=== PATIENT | female | born 1990 | race Caucasian/White ===

== ENCOUNTER 2019-12-26 16:34 | Inpatient (IN) | payer OTHER ==
[~2019-12-26] VITALS: Ht 160 cm; Wt 48.6 kg
[2019-12-26 18:05] LABS: HEMATOCRIT 45.5 % (36.0-47.0); HEMOGLOBIN 15.3 g/dl (12.0-15.5); MEAN CORPUSCULAR HEMOGLOBIN 28.6 pg (27.0-33.0); MEAN CORPUSCULAR HGB CONC 33.6 g/dl (32.0-36.5); PLATELET COUNT, AUTOMATED 273 10^3/uL (150-450); RED BLOOD COUNT 5.35 10^6/uL (4.00-5.40); WHITE BLOOD COUNT 7.9 10^3/uL (4.0-10.0)
[2019-12-26 18:34] LABS: ACETAMINOPHEN LEVEL < 2.0 UG/ML (10.0-30.0); ALT/SGPT 27 U/L (12-78); BILIRUBIN,DIRECT 0.3 MG/DL (0.0-0.2); BLOOD UREA NITROGEN 16 MG/DL (7-18); CALCIUM LEVEL 8.9 MG/DL (8.5-10.1); CARBON DIOXIDE LEVEL 24 MEQ/L (21-32); CHLORIDE LEVEL 109 MEQ/L (98-107); CREATININE FOR GFR 0.69 MG/DL (0.55-1.30); ETHYL ALCOHOL (ETHANOL) < 0.003 % (0.000-0.010); GLOMERULAR FILTRATION RATE > 60.0 (>60); GLUCOSE, FASTING 77 MG/DL (70-100); POTASSIUM SERUM 3.6 MEQ/L (3.5-5.1); SALICYLATE LEVEL < 1.7 MG/DL (5.0-30.0); SODIUM LEVEL 141 MEQ/L (136-145); TOTAL PROTEIN 7.5 GM/DL (6.4-8.2)
[2019-12-26] MEDS ORDERED: MAALOX 30 ML SUSP *UDC PO PRN (19:30)
[2019-12-26] MEDS ORDERED: IBUPROFEN 400 MG TAB PO PRN (19:30)
[2019-12-26] MEDS ORDERED: MOM 30ML SUSPENSION UDC PO PRN (19:30)
[2019-12-26] MEDS ORDERED: IBUP-1730 PO (20:58)
[2019-12-26 21:21] LABS: AMPHETAMINES LEVEL URINE NEGATIVE (NEGATIVE); BARBITURATES URINE NEGATIVE (NEGATIVE); BENZODIAZEPINES URINE NEGATIVE (NEGATIVE); CANNABINOIDS URINE NEGATIVE (NEGATIVE); COCAINE METABOLITE URINE NEGATIVE (NEGATIVE); METHADONE URINE NEGATIVE (NEGATIVE); OPIATES URINE NEGATIVE (NEGATIVE); PHENCYCLIDINE URINE NEGATIVE (NEGATIVE)
[2019-12-26 23:14] VITALS: BP 113/71
[2019-12-27] MEDS: OLANZapine ORAL DISINTEGRATING TAB 5MG PO PRN (00:42)
[2019-12-27] MEDS: traZODone 50 MG TAB PO PRN (00:42)
[2019-12-27 06:20] VITALS: BP 107/64
--- NOTE | 2019-12-27 11:28 | HPEPDOC ---
General Date of Admission Dec 26, 2019 at 19:27 Date of Service: Dec 27, 2019 Chief Complaint The patient is a 29-year-old female admitted with a reason for visit of Unspecified Psychotic Disorder. Source: Patient Exam Limitations: No limitations Associated Symptoms: Denies Symptoms History of Present Illness Ms. Mckeon is a 29-year-old female who is admitted to the behavioral health unit due to worsening depression. Patient reported that for some time now she has gone between feeling normal and in a good mood to feeling very sad and tearful. Patient denied any history of treatment for depression. She reported that "on and off" . She has had suicidal thoughts, she denied any homicidal ideation. Patient denied any new or worsening medical symptoms. Home Medications Scheduled PRN Ibuprofen (Ibuprofen) 200 Mg Tablet, 400 MG PO Q6H PRN for PAIN, (Reported) Allergies Coded Allergies: No Known Drug Allergies (Verified Allergy, Unknown, 12/26/19) Past Medical History Medical History Unremarkable Surgical History None Family History Unknown Social History * Smoker: Denies Alcohol: Denies Drugs: denies A-FIB/CHADSVASC A-FIB History Current/History of A-Fib/PAF?: No Current PO Anticoag Therapy: No Review of Systems Constitutional: Denies: Chills, Fever, Night Sweats Eyes: Denies: Pain ENT: Denies: Head Aches Skin: Denies: Rash Pulmonary: Denies: Dyspnea, Cough Cardiovascular: Denies: Chest Pain, Palpitations, Edema Gastrointestinal: Denies: Nausea, Vomiting, Abdominal Pain, Diarrhea, Constipation Genitourinary: Denies: Dysuria, Frequency Hematologic: Denies: Bruising Musculoskeletal: Denies: Neck Pain, Back Pain, Joint Pain, Muscle Pain, Spasms Neurological: Denies: Weakness, Numbness Psych: Reports: Depression, Thoughts of Self Harm; Denies: Mood Normal, Thoughts of Harming Other Physical Examination General Exam: Positive: Alert, Mild Distress (very depressed, tearful) Eye Exam: Positive: PERRLA, Conjunctiva & lids normal, EOMI; Negative: Sclera icteric ENT Exam: Positive: Atraumatic, Mucous membr. moist/pink, Pharynx Normal, Tongue Midline; Negative: Pharyngeal Edema Neck Exam: Positive: Supple; Negative: thyromegaly, Lymphadenopathy Chest Exam: Positive: Clear to auscultation, Normal air movement Heart Exam: Positive: Rate Normal, Regular Rhythm, Normal S1, Normal S2; Negative: Murmurs, Rubs Telemetry: Positive: No significant arrhythmia Abdomen Exam: Positive: Normal bowel sounds, Soft; Negative: Tenderness Extremity Exam: Positive: Normal pulses; Negative: Clubbing, Cyanosis, Edema, Tenderness, Swelling Skin Exam: Positive: Nl turgor and temperature Neuro Exam: Positive: Normal Gait, Strength at 5/5 X4 ext, Cranial Nerves 3-12 NL; Negative: Normal Speech (speaks very quietly, halting due to tears) Psych Exam: Negative: Mood NL Vital Signs Vital Signs Date Time Temp Pulse Resp B/P (MAP) Pulse Ox O2 Delivery O2 Flow Rate FiO2 12/27/19 06:20 99.6 66 20 107/64 (78) Room Air 12/26/19 23:14 100 Laboratory Data Labs 24H Laboratory Tests 2 12/26/19 21:00: Urine Opiates Screen NEGATIVE, Urine Methadone Screen NEGATIVE, Urine Barbiturates Screen NEGATIVE, Urine Phencyclidine Screen NEGATIVE, Urine Amphetamines Screen NEGATIVE, Urine Benzodiazepines Screen NEGATIVE, Urine Cocaine Metabolite Screen NEGATIVE, Urine Cannabinoids Screen NEGATIVE Assessment/Plan #1. Depression with suicidal thoughts. Continued management per psychiatry Medicine will sign off at this time. Please feel free to re-consult as needed. Plan / VTE VTE Prophylaxis Ordered?: No ERASTO OSBORN PA-C Dec 27, 2019 11:28
[2019-12-27] MEDS: LORazepam 0.5 MG TAB PO SCH ×3 (12:08→21:32)
--- NOTE | 2019-12-27 12:20 | MHHPEPDOC ---
[facility] History & Physical History and Physical DATE OF ADMISSION: Dec 26, 2019 at 19:27 New Patient Yissel Mckeon MRN: N/A Date of : N/A Date of Service: 12/27/2019 Chief Complaint "I do not feel right." History of Present Illness The patient a 29-year-old woman presented to [facility] and what appears to be a catatonic state after being brought in by her . The patient was unable to give much history or describe the majority of her symptoms in the ER and was admitted out of an abundance of caution. When the patient was met with she was unable to describe any symptoms to any depth other than feeling "weird." She appeared to be fairly slowed and unable to provide any meaningful history. Review Of Systems Unable to obtain due to patient mental health/mental status exam. Past Psychiatric History Unknown, but reports do not show any consistent admissions, medication trials or current follow ups. Allergies Please see below. Family Psychiatric History Unknown due to mental status. Social History Patient reportedly lives with , has an unknown current employment history and background. Substance Abuse History Urinary tox was negative on presentation and noncontributory. Medical History Does not appear to have significant past medical problems. Mental Status Examination General: Fair hygiene Speech: Nearly mute Thought processes: Generally linear at times MSK: [place] found, slowed with significant purposeless movements Thought content: Clouded Abstract reasoning, and computation: Impaired Description of associations: Intact Description of abnormal or psychotic thoughts: Unknown Judgment: Impaired Insight: Impaired Orientation: Alert and orientated to environment Cognition: Slowed Recent and remote memory: Intact Attention span and concentration: Slowed Fund of knowledge: Adequate Mood: "Do not know" Affect: Profoundly flat Diagnoses Catatonia. Assessment and Plan Catatonia: Will start 0.5 mg of Ativan TID and assess as the patient improves if there are underlying psychotic or depressive processes. 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 Problem List 1. Altered thoughts. Initial Treatment Plan 1. Patient was admitted on a 9.39 legal status. 2. Complete history was obtained. 3. With patients permission, family will be contacted and database will be expanded. 4. Patients medication regimen will be reviewed and changed accordingly. 5. Patient will be provided with protected environment. 6. Patient will be treated with individual, group, and milieu therapies. 7. Patient will receive supportive psych-education. 8. Discharge planning will commence immediately. 9. Outpatient follow-up treatment will be strongly recommended. 10. The initial treatment plan will focus initially on: Estimated Length Of Stay 3 days. Time Spent 70 minutes with greater than 50% of time spent on counseling/coordination of care. Vital Signs Vital Signs Date Time Temp Pulse Resp B/P (MAP) Pulse Ox O2 Delivery O2 Flow Rate FiO2 12/27/19 06:20 99.6 66 20 107/64 (78) Room Air 12/26/19 23:14 100 Laboratory Data 24H Labs Laboratory Tests 2 12/26/19 21:00: Urine Opiates Screen NEGATIVE, Urine Methadone Screen NEGATIVE, Urine Barbiturates Screen NEGATIVE, Urine Phencyclidine Screen NEGATIVE, Urine Amphetamines Screen NEGATIVE, Urine Benzodiazepines Screen NEGATIVE, Urine Cocaine Metabolite Screen NEGATIVE, Urine Cannabinoids Screen NEGATIVE Medications Scheduled PRN Ibuprofen (Ibuprofen) 200 Mg Tablet, 400 MG PO Q6H PRN for PAIN, (Reported) Allergies Coded Allergies: No Known Drug Allergies (Verified Allergy, Unknown, 12/26/19) hydrocodone (Verified Adverse Reaction, Mild, 12/28/19) Upset stomach per patient JIMENA BUSCH DO Dec 27, 2019 12:20
[2019-12-27 15:36] VITALS: BP 109/58
[2019-12-27] MEDS: ACETAMINOPHEN TAB 650MG DOSE (2X325MG) PO PRN (21:42)
[2019-12-28 06:39] VITALS: BP 117/69
[2019-12-28] MEDS ORDERED: INFLUENZA QUADRIVALENT PF VACCINE 0.5ML SYRINGE (90686) IM ONE (09:00)
[2019-12-28] MEDS: LORazepam 0.5 MG TAB PO SCH ×3 (09:51→21:04)
[2019-12-28] MEDS: OLANZapine ORAL DISINTEGRATING TAB 5MG PO PRN (10:13)
--- NOTE | 2019-12-28 12:42 | MHIPNPDOC ---
[facility] Progress Note Progress Note Inpatient Progress Note Yissel Mckeon MRN: N/A Date of : N/A Date of Service: 12/28/2019 History of Present Illness The patient a 29-year-old woman presented to [facility] and what appears to be a catatonic state after being brought in by her . The patient was unable to give much history or describe the majority of her symptoms in the ER and was admitted out of an abundance of caution. When the patient was met with she was unable to describe any symptoms to any depth other than feeling "weird." She appeared to be fairly slowed and unable to provide any meaningful history. Interval History The patient was met with today. She was lying in bed and was noting some sedation. However, she still speaks fairly softly and is generally unable to give any meaningful information. She did attend groups and was notably more interactive. Collateral information from her indicates that she has no history of mental health problems and had increasingly bizarre behavior over the last several months. She generally has not had any behavioral problems but is notably odd and shuffles around the unit. Review Of Systems Unable to obtain due to mental status. Psychotherapy None on this visit. Vital Signs Reviewed. Mental Status Examination General: Fair hygiene Speech: Nearly mute Thought processes: Generally linear at times MSK: [place]egen[place] found, slowed with significant purposeless movements Thought content: Clouded Abstract reasoning, and computation: Impaired Description of associations: Intact Description of abnormal or psychotic thoughts: Unknown Judgment: Impaired Insight: Impaired Orientation: Alert and orientated to environment Cognition: Slowed Recent and remote memory: Intact Attention span and concentration: Slowed Fund of knowledge: Adequate Mood: "Do not know" Affect: Profoundly flat Diagnoses Catatonia. Assessment and Plan Catatonia: Continue Ativan 0.5 mg TID. 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 Time Spent 15 minutes. Tuesday Vital Signs Vital Signs Date Time Temp Pulse Resp B/P (MAP) Pulse Ox O2 Delivery O2 Flow Rate FiO2 12/28/19 10:44 98.7 12/28/19 06:39 90 14 117/69 (85) Room Air 12/26/19 23:14 100 Current Medications Current Medications Medications (Trade) Dose Ordered Sig/Manolo Route PRN Reason Start Time Stop Time Status Last Admin Dose Admin Acetaminophen (Tylenol Tab) 650 mg Q6HP PRN PO PAIN / FEVER 12/27/19 21:15 12/27/19 21:42 Al Hydrox/Mg Hydrox/Simethicone (Mylanta) 30 ml Q4HP PRN PO HEARTBURN/INDIGESTION 12/26/19 19:30 Home Med (Med Rec Complete!) ASDIRECTED XX 12/26/19 21:00 12/26/19 21:00 DC Ibuprofen (Advil) 400 mg Q6HP PRN PO PAIN 12/26/19 19:30 12/27/19 21:18 DC 12/27/19 16:49 Lorazepam (Ativan) 0.5 mg TID PO 12/27/19 09:00 12/28/19 09:51 Magnesium Hydroxide (Milk Of Magnesia) 30 ml DAILYPRN PRN PO CONSTIPATION 12/26/19 19:30 Olanzapine (ZyPREXA ZYDIS) 5 mg Q4HP PRN PO ANXIETY/AGITATION 12/26/19 19:30 12/28/19 10:13 Trazodone HCl (Desyrel) 50 mg QHSP PRN PO INSOMNIA 12/26/19 19:30 12/27/19 00:42 Allergies Coded Allergies: hydrocodone (Verified Adverse Reaction, Mild, Upset stomach per patient, 12/28/19) JIMENA BUSCH DO Dec 28, 2019 12:42
[2019-12-28 16:00] VITALS: BP 104/67
[2019-12-29 06:48] VITALS: BP 129/83
[2019-12-29] MEDS ORDERED: INFLUENZA QUADRIVALENT PF VACCINE 0.5ML SYRINGE (90686) IM ONE (09:00)
[2019-12-29] MEDS: LORazepam 0.5 MG TAB PO SCH ×3 (09:26→21:43)
--- NOTE | 2019-12-29 09:31 | MHIPNPDOC ---
[facility] Progress Note Progress Note DATE OF SERVICE: 12/29/19 HISTORY: Per Dr. Guevara: "The patient a 29-year-old woman presented to [facility] and what appears to be a catatonic state after being brought in by her . The patient was unable to give much history or describe the majority of her symptoms in the ER and was admitted out of an abundance of caution. When the patient was met with she was unable to describe any symptoms to any depth other than feeling "weird." She appeared to be fairly slowed and unable to provide any meaningful history. Interval History 12/27/2019 The patient was met with today. She was lying in bed and was noting some sedation. However, she still speaks fairly softly and is generally unable to give any meaningful information. She did attend groups and was notably more interactive. Collateral information from her indicates that she has no history of mental health problems and had increasingly bizarre behavior over the last several months. She generally has not had any behavioral problems but is notably odd and shuffles around the unit." VITAL SIGNS: See below. NEW TEST RESULTS: See below. CURRENT MEDICATIONS: See below. MENTAL STATUS EXAMINATION: General: Fair hygiene Speech: reg rate/rhythm/volume Thought processes: Generally linear and logical MSK: improving [place]egenhal[place] found, less slowed with less purposeless movements Thought content: denies SI/HI Abstract reasoning, and computation: Impaired Description of associations: Intact Description of abnormal or psychotic thoughts: Unknown Judgment: Impaired Insight: Impaired Orientation: Alert and orientated to environment Cognition: Slowed Recent and remote memory: Intact Attention span and concentration: fair Fund of knowledge: Adequate Mood: "ok" Affect: more reactive DIAGNOSES: Catatonia. ASSESSMENT:Pt seen in her room and states that her mood is "ok". She has a picture of her and daughter in bed with her that she states makes her feel better seeing. States she slept well last night. Feels she is tolerating her medication and they're beneficial. She appears less catatonic today and as able to having meaningful, logical, and linear conversation today. She is attending some groups and finding them helpful. She denies SI/HI, hallucinations, delusions. Pt feels safe here. MANAGEMENT PLAN: per Dr. Guevara Ativan 0.5 mg TID. TIME SPENT: 30 minutes. Vital Signs Vital Signs Date Time Temp Pulse Resp B/P (MAP) Pulse Ox O2 Delivery O2 Flow Rate FiO2 12/29/19 06:48 98.5 83 12 129/83 (98) 12/28/19 06:39 Room Air 12/26/19 23:14 100 Current Medications Current Medications Medications (Trade) Dose Ordered Sig/Manolo Route PRN Reason Start Time Stop Time Status Last Admin Dose Admin Acetaminophen (Tylenol Tab) 650 mg Q6HP PRN PO PAIN / FEVER 12/27/19 21:15 12/27/19 21:42 Al Hydrox/Mg Hydrox/Simethicone (Mylanta) 30 ml Q4HP PRN PO HEARTBURN/INDIGESTION 12/26/19 19:30 Home Med (Med Rec Complete!) ASDIRECTED XX 12/26/19 21:00 12/26/19 21:00 DC Ibuprofen (Advil) 400 mg Q6HP PRN PO PAIN 12/26/19 19:30 12/27/19 21:18 DC 12/27/19 16:49 Lorazepam (Ativan) 0.5 mg TID PO 12/27/19 09:00 12/28/19 21:04 Magnesium Hydroxide (Milk Of Magnesia) 30 ml DAILYPRN PRN PO CONSTIPATION 12/26/19 19:30 Olanzapine (ZyPREXA ZYDIS) 5 mg Q4HP PRN PO ANXIETY/AGITATION 12/26/19 19:30 12/28/19 10:13 Trazodone HCl (Desyrel) 50 mg QHSP PRN PO INSOMNIA 12/26/19 19:30 12/27/19 00:42 Allergies Coded Allergies: hydrocodone (Verified Adverse Reaction, Mild, Upset stomach per patient, 12/28/19) SAI MURGUIA DO Dec 29, 2019 9:31 am
[2019-12-29 10:49] LABS: APPEARANCE, URINE HAZY (CLEAR); BILIRUBIN, URINE AUTO NEGATIVE (NEGATIVE); BLOOD, URINE BLOOD 3+ (NEGATIVE); COLOR, URINE YELLOW (YELLOW); GLUCOSE, URINE (UA) AUTO NEGATIVE (NEGATIVE); KETONE, URINE AUTO NEGATIVE (NEGATIVE); LEUKOCYTE ESTERASE, URINE AUTO TRACE (NEGATIVE); NITRITE, URINE AUTO NEGATIVE (NEGATIVE); PROTEIN, URINE AUTO NEGATIVE (NEGATIVE)
[2019-12-29 10:55] LABS: BACTERIA, URINE AUTO 1+ (NEGATIVE); MUCUS, URINE MODERATE (NEGATIVE); RBC, URINE AUTO 10 /HPF (0-3); SQUAMOUS EPITHELIAL CELL UR AU 5 /HPF (0-6); WBC, URINE AUTO 19 /HPF (0-3)
[2019-12-29] MEDS: BACTRIM 160MG/800MG DS TAB PO SCH ×2 (16:18→21:00)
[2019-12-29 17:42] VITALS: BP 113/74
[2019-12-29] MEDS: traZODone 50 MG TAB PO PRN (21:45)
[2019-12-30 06:11] VITALS: BP 152/70
[2019-12-30] MEDS: LORazepam 0.5 MG TAB PO SCH ×3 (08:42→20:37)
[2019-12-30] MEDS: BACTRIM 160MG/800MG DS TAB PO SCH ×2 (08:42→20:37)
--- NOTE | 2019-12-30 09:07 | MHIPNPDOC ---
[facility] Progress Note Progress Note DATE OF SERVICE: 12/30/19 HISTORY: Per Dr. Guevara: "The patient a 29-year-old woman presented to [facility] and what appears to be a catatonic state after being brought in by her . The patient was unable to give much history or describe the majority of her symptoms in the ER and was admitted out of an abundance of caution. When the patient was met with she was unable to describe any symptoms to any depth other than feeling "weird." She appeared to be fairly slowed and unable to provide any meaningful history. Interval History 12/27/2019 The patient was met with today. She was lying in bed and was noting some sedation. However, she still speaks fairly softly and is generally unable to give any meaningful information. She did attend groups and was notably more interactive. Collateral information from her indicates that she has no history of mental health problems and had increasingly bizarre behavior over the last several months. She generally has not had any behavioral problems but is notably odd and shuffles around the unit." VITAL SIGNS: See below. NEW TEST RESULTS: See below. CURRENT MEDICATIONS: See below. MENTAL STATUS EXAMINATION: General: Fair hygiene Speech: reg rate/rhythm/volume Thought processes: Generally linear and logical MSK: denies Thought content: denies SI/HI Abstract reasoning, and computation: fair Description of associations: Intact Description of abnormal or psychotic thoughts: denies hallucinations and delusions Judgment: fair Insight: fair Orientation: Alert and orientated to environment Cognition: improving Recent and remote memory: Intact Attention span and concentration: fair Fund of knowledge: Adequate Mood: "alright" Affect: euthymic mostly DIAGNOSES: Catatonia. ASSESSMENT:Pt seen in the milieu stating her mood is "alright." Thoughts appear logical and linear with good attention. She no longer appears catatonic. She is able to ask for things she would like, like gateraid. States she slept well last night. Feels she is tolerating her medication and they're beneficial. She is attending some groups and finding them helpful. She denies SI/HI, hallucinations, delusions. Pt feels safe here. MANAGEMENT PLAN: per Dr. Guevara Ativan 0.5 mg TID. TIME SPENT: 30 minutes. Vital Signs Vital Signs Date Time Temp Pulse Resp B/P (MAP) Pulse Ox O2 Delivery O2 Flow Rate FiO2 12/30/19 06:11 98.0 72 12 152/70 (97) 12/29/19 17:42 100 Room Air Laboratory Data 24H Labs Laboratory Tests 2 12/29/19 10:35: Urine Color YELLOW, Urine Appearance HAZY, Urine pH 6.0, Urine Specific [place] 1.020, Urine Protein NEGATIVE, Urine Glucose (Auto)(UA) NEGATIVE, Urine Ketones (Auto) NEGATIVE, Urine Blood 3+H, Urine Nitrite NEGATIVE, Urine Bilirubin NEGATIVE, Urine Urobilinogen 2.0H, Urine Leukocyte Esterase (Auto) TRACEH, Urine WBC (Auto) 19H, Urine RBC (Auto) 10H, Urine Hyaline Casts (Auto) 0, Urine Bacteria (Auto) 1+H, Urine Squamous Epithelial Cells 5, Urine Mucus (Auto) MODERATE, Urine Sperm (Auto) Current Medications Current Medications Medications (Trade) Dose Ordered Sig/Manolo Route PRN Reason Start Time Stop Time Status Last Admin Dose Admin Acetaminophen (Tylenol Tab) 650 mg Q6HP PRN PO PAIN / FEVER 12/27/19 21:15 12/27/19 21:42 Al Hydrox/Mg Hydrox/Simethicone (Mylanta) 30 ml Q4HP PRN PO HEARTBURN/INDIGESTION 12/26/19 19:30 Home Med (Med Rec Complete!) ASDIRECTED XX 12/26/19 21:00 12/26/19 21:00 DC Ibuprofen (Advil) 400 mg Q6HP PRN PO PAIN 12/26/19 19:30 12/27/19 21:18 DC 12/27/19 16:49 Lorazepam (Ativan) 0.5 mg TID PO 12/27/19 09:00 12/30/19 08:42 Magnesium Hydroxide (Milk Of Magnesia) 30 ml DAILYPRN PRN PO CONSTIPATION 12/26/19 19:30 Olanzapine (ZyPREXA ZYDIS) 5 mg Q4HP PRN PO ANXIETY/AGITATION 12/26/19 19:30 12/28/19 10:13 Trazodone HCl (Desyrel) 50 mg QHSP PRN PO INSOMNIA 12/26/19 19:30 12/29/19 21:45 Trimethoprim/ Sulfamethoxazole (Bactrim Ds, Septra Ds 160mg/ 800mg) 1 tab BID PO 12/29/19 09:00 12/30/19 08:42 Allergies Coded Allergies: hydrocodone (Verified Adverse Reaction, Mild, Upset stomach per patient, 12/28/19) SAI MURGUIA DO Dec 30, 2019 9:07 am
[2019-12-30 15:00] VITALS: BP 106/58
[2019-12-31 06:08] VITALS: BP 102/59
--- NOTE | 2019-12-31 09:32 | MHIPNPDOC ---
[facility] Progress Note Progress Note Inpatient Progress Note Yissel Mckeon MRN: N/A Date of : N/A Date of Service: 12/31/2019 History of Present Illness The patient a 29-year-old woman presented to [facility] and what appears to be a catatonic state after being brought in by her . The patient was unable to give much history or describe the majority of her symptoms in the ER and was admitted out of an abundance of caution. When the patient was met with she was unable to describe any symptoms to any depth other than feeling "weird." She appeared to be fairly slowed and unable to provide any meaningful history. Interval History The patient was met with, she reports that she is doing better. She reports much less depression. Her anxiety is resolving, she does have some difficulty with some inappropriate guilt, likely secondary to depression. She is met with where it becomes abundantly clear that she is improving with the Ativan, discussed with patient about starting an antidepressant as it appears far more likely that the patient in question had depression primarily before being admitted. No issues overnight. Attends groups well and staff report improving well. Review Of Systems General: Denies fever or appetite changes Cardiovascular: Denies Chest pain or palpations GI: Denies Nausea, vomiting, or bowel changes Respiratory: Denies shortness of breath or cough Neuro: Denies dizziness, tremors Derm: Denies any rashes or pruritus : Denies any dysuria or urinary problems MSK: Denies any muscle tightness or stiffness HEENT: Denies any vision changes or headaches Psychotherapy None on this visit. Vital Signs Reviewed. Mental Status Examination General: Well dressed with good hygiene Speech: Spontaneous and fluid Thought processes: Linear and logical MSK: Smooth and coordinated gait, no signs of tremors or involuntary orofacial movements Thought content: Future orientated Abstract reasoning, and computation: Intact Description of associations: Intact Description of abnormal or psychotic thoughts: Denies any suicidal or homicidal ideation. Denies any auditory or visual hallucinations. Does not appear to be responding to internal stimuli. Does not appear to be endorsing any bizarre or paranoid ideation. Judgment: fair Insight: fair Orientation: Alert and orientated 3 Cognition: Grossly normal Recent and remote memory: Intact Attention span and concentration: Intact Fund of knowledge: Adequate Mood: "okay" Affect: Euthymic with a full range Diagnoses Unspecified depression, likely MDD. Assessment and Plan Catatonia: Continue Ativan 0.5 mg TID. MDD: Start sertraline 25 mg daily. Discussed risks, benefits and potential side effects. Disposition Discharge tomorrow if continues to improve. Time Spent 15 minutes. Tuesday Vital Signs Vital Signs Date Time Temp Pulse Resp B/P (MAP) Pulse Ox O2 Delivery O2 Flow Rate FiO2 12/31/19 06:08 98.5 62 14 102/59 (73) 12/30/19 15:00 100 Room Air Current Medications Current Medications Medications (Trade) Dose Ordered Sig/Manolo Route PRN Reason Start Time Stop Time Status Last Admin Dose Admin Acetaminophen (Tylenol Tab) 650 mg Q6HP PRN PO PAIN / FEVER 12/27/19 21:15 12/27/19 21:42 Al Hydrox/Mg Hydrox/Simethicone (Mylanta) 30 ml Q4HP PRN PO HEARTBURN/INDIGESTION 12/26/19 19:30 Home Med (Med Rec Complete!) ASDIRECTED XX 12/26/19 21:00 12/26/19 21:00 DC Ibuprofen (Advil) 400 mg Q6HP PRN PO PAIN 12/26/19 19:30 12/27/19 21:18 DC 12/27/19 16:49 Lorazepam (Ativan) 0.5 mg TID PO 12/27/19 09:00 12/30/19 20:37 Magnesium Hydroxide (Milk Of Magnesia) 30 ml DAILYPRN PRN PO CONSTIPATION 12/26/19 19:30 Olanzapine (ZyPREXA ZYDIS) 5 mg Q4HP PRN PO ANXIETY/AGITATION 12/26/19 19:30 12/28/19 10:13 Trazodone HCl (Desyrel) 50 mg QHSP PRN PO INSOMNIA 12/26/19 19:30 12/29/19 21:45 Trimethoprim/ Sulfamethoxazole (Bactrim Ds, Septra Ds 160mg/ 800mg) 1 tab BID PO 12/29/19 09:00 12/30/19 20:37 Allergies Coded Allergies: hydrocodone (Verified Adverse Reaction, Mild, Upset stomach per patient, 12/28/19) JIMENA BUSCH DO Dec 31, 2019 09:32
[2019-12-31] MEDS: LORazepam 0.5 MG TAB PO SCH ×3 (09:58→20:07)
[2019-12-31] MEDS: BACTRIM 160MG/800MG DS TAB PO SCH ×2 (09:58→20:07)
[2019-12-31] MEDS ORDERED: SERTRALINE HCL 25 MG TABLET PO ONE (12:00)
[2019-12-31 16:00] VITALS: BP 110/68
[2019-12-31] MEDS: traZODone 50 MG TAB PO PRN (20:07)
[2019-12-31] MEDS: ACETAMINOPHEN TAB 650MG DOSE (2X325MG) PO PRN (21:25)
[2020-01-01 06:27] VITALS: BP 111/51
[2020-01-01] MEDS: LORazepam 0.5 MG TAB PO SCH (08:22)
[2020-01-01] MEDS: BACTRIM 160MG/800MG DS TAB PO SCH (08:22)
[2020-01-01] MEDS ORDERED: SERTRALINE HCL 25 MG TABLET PO SCH (09:00)
[2020-01-01] MEDS ORDERED: SERT25TA21 PO (09:27)
[2020-01-01] MEDS ORDERED: ATIV1TAB10 PO (09:27)
[2020-01-01] MEDS ORDERED: SULF1TAB93 PO (09:27)
--- NOTE | 2020-01-01 09:44 | MHDSPDOC ---
[facility] Discharge Summary Discharge Summary DATE OF ADMISSION: Dec 26, 2019 at 19:27 /DATE OF DISCHARGE: 01/01/20 Discharge Yissel Mckeon MRN: [id number] Date of : N/A Date of Service: 01/01/2020 Diagnoses unspecified depression, likely MDD. Catatonia. History of Present Illness The patient a 29-year-old woman presented to [facility] and what appears to be a catatonic state after being brought in by her . The patient was unable to give much history or describe the majority of her symptoms in the ER and was admitted out of an abundance of caution. When the patient was met with she was unable to describe any symptoms to any depth other than feeling "weird." She appeared to be fairly slowed and unable to provide any meaningful history. Consultants Involved Hospitalist/PCP screening Treatment and Progress On The Unit The patient was admitted to the inpatient mental health unit and started on Ativan 0.5 mg TID for catatonia. She did well and improved quickly with little if any behavioral problems. As she improved, it appeared quite clear that she had unusual guilty thoughts and symptoms of depression, a common cause of catatonia. She was started on sertraline 25 mg daily and did well with no side effects. She was active on the unit as she resolved, attended groups, was very social and rapidly improved. Discussed with family and patient about the need to continue treatment as this level of catatonia is quite unusual. Additionally recommended that iron levels and other medical causes of catatonia be examined. Discharge Assessment 29-year-old woman with a history no major psychiatric involvement presents catatonic, as she resolves it appears quite clear that there is some underlying depression that has spiraled out of control, she resolves well with standard treatment, is given an Ativan taper to finish at home. The patient at the time of discharge did not meet criteria for involuntary admission/extension due to having a normal mental status exam, fair insight into the situation, They are engaged in the discharge process, as well as being friendly and amenable in behavioral control and havent been engaging in any observed concerning behavior or ideation recently. They decline voluntary extension/admission at this time and must be discharged in good vy, as Im unable to make a case for holding the patient against their will. They may have historical risk factors of admissions and other interactions with psychiatry however, those are not modifiable from a clinical perspective. The patient will need to be discharged in good vy. Mental Status Examination General: Well dressed with good hygiene Speech: Spontaneous and fluid Thought processes: Linear and logical MSK: Smooth and coordinated gait, no signs of tremors or involuntary orofacial movements Thought content: Future orientated Abstract reasoning, and computation: Intact Description of associations: Intact Description of abnormal or psychotic thoughts: Denies any suicidal or homicidal ideation. Denies any auditory or visual hallucinations. Does not appear to be responding to internal stimuli. Does not appear to be endorsing any bizarre or paranoid ideation. Judgment: fair Insight: fair Orientation: Alert and orientated 3 Cognition: Grossly normal Recent and remote memory: Intact Attention span and concentration: Intact Fund of knowledge: Adequate Mood: "okay" Affect: Euthymic with a full range Follow Up The social work team worked during the predischarge meeting in order to evaluate for further issues of lethality address them fully before discharge. They worked on safety planning with the patient's family members in order to ensure that the patient will have a safe and effective discharge. Time Spent The amount of time spent in the coordination of care for this patient was approximately 40 minutes. Tuesday Vital Signs/I&Os Vital Signs Date Time Temp Pulse Resp B/P (MAP) Pulse Ox O2 Delivery O2 Flow Rate FiO2 01/01/20 06:27 98.0 63 18 111/51 (71) 12/30/19 15:00 100 Room Air Laboratory Data Microbiology Microbiology 12/27/19 Respiratory Virus Panel (PCR) ([facility]) - Final, Complete Medications Scheduled Lorazepam (Ativan) 0.5 Mg Tablet, 0.5 MG PO TID for taper for 7 Days, #7 taper down with 1/2 a tab less per day total until finnished Sertraline HCl (Sertraline HCl) 25 Mg Tablet, 25 MG PO DAILY for mood for 7 Days, #7 Sulfamethoxazole/Trimethoprim (Sulfamethoxazole-Tmp Ds Tablet) 1 Each Tablet, 1 TAB PO BID for uti for 5 Days, #10 Scheduled PRN Ibuprofen (Ibuprofen) 200 Mg Tablet, 400 MG PO Q6H PRN for PAIN, (Reported) Allergies Coded Allergies: hydrocodone (Verified Adverse Reaction, Mild, Upset stomach per patient, 12/28/19) JIMENA BUSCH DO Jan 01, 2020 09:44
== END 2020-01-01 13:45 | disposition home or self-care (01) | DRG 881 ==
LOC: M ED 16:34 → M ED INP 19:27 → M PSY 22:46
PROVIDERS: ADMIT Psychiatry & Neurology Psychiatry; ATTEND Psychiatry & Neurology Addiction Medicine
DX: F32.9 Major depressive disorder, single episode, unspecified (principal); F06.1 Catatonic disorder due to known physiological condition; F29 Unspecified psychosis not due to a substance or known physiological condition; Z79.899 Other long term (current) drug therapy; Z88.8 Allergy status to other drugs, medicaments and biological substances

== ENCOUNTER 2023-10-28 23:50 | Emergency (ER) | payer OTHER ==
[~2023-10-28 23:50] MED LIST: ATIV1TAB10 PO; BACTDSTA PO; IBUP-1730 PO; SERT25TA21 PO
== END 2023-10-29 01:23 | disposition left against medical advice (07) ==
LOC: M ED 23:50
DX: Z53.21 Procedure and treatment not carried out due to patient leaving prior to being seen by health care provider (principal)